=== PATIENT | male | born 1970 | race Caucasian/White ===

== ENCOUNTER 2016-04-26 08:28 | Inpatient (IN) | payer BC ==
[2016-04-26 09:50] LABS: Hematocrit 46 % (42-52); Hemoglobin 15.7 g/dl (14.0-18.0); Mean Corpuscular HGB Conc 34 g/dl (31-36); Mean Corpuscular Hemoglobin 32 pg (27-31); Mean Corpuscular Volume 94 fL (80-94); Mean Platelet Volume 8 um3 (7.4-10.4); Red Blood Count 4.86 10^6/ul (4.0-5.4); Red Cell Distribution Width 13 % (10.5-15); White Blood Count 6.3 10^3/ul (3.5-10.8)
[2016-04-26 09:53] LABS: Urine Bacteria Absent (Absent); Urine Bilirubin Negative (Negative); Urine Glucose Negative (Negative); Urine Nitrite Negative (Negative)
[2016-04-26 10:02] LABS: ALT 20 U/L (7-52); AST 19 U/L (13-39); Albumin 4.8 g/dL (3.2-5.2); Alkaline Phosphatase 76 U/L (34-104); Anion Gap 8 mmol/L (2-11); BUN/Creatinine Ratio 21.5 (8-20); Blood Urea Nitrogen 20 mg/dL (6-24); CO2 Carbon Dioxide 22 mmol/L (22-32); Chloride 106 mmol/L (101-111); EGFR Non-African American 87.9 (>60); Globulin 2.7 g/dL (2-4); Glucose 103 mg/dL (70-100); Potassium 4.1 mmol/L (3.5-5.0); Sodium 136 mmol/L (133-145); Total Protein 7.5 g/dL (6.4-8.9)
[2016-04-26 10:11] LABS: Benzodiazepine Urine Screen None Detected (None Detect)
[2016-04-26 10:21] LABS: Acetaminophen < 15 mcg/mL; Alcohol < 10 mg/dL (<10); Salicylate < 2.50 mg/dL (<30)
[2016-04-26 10:30] LABS: TSH (Thyroid Stimulating Horm) 1.02 mcIU/mL (0.34-5.60)
[2016-04-26] MEDS ORDERED: lamoTRIgine TAB(*) 100 MG PO ONE (14:37)
[2016-04-26] MEDS ORDERED: Nicotine Inhaler* 10 MG AMP INH PRN (14:40)
[2016-04-26] MEDS ORDERED: Al Hydrox/Mg Hydrox/Simet LIQ* 30 ML UDC PO PRN (14:40)
[2016-04-26] MEDS ORDERED: lamoTRIgine TAB(*) 100 MG ONE (14:45)
--- NOTE | 2016-04-26 14:54 | ED ---
Tracy Adamson Alok, scribed for Larry Gustafson MD on 04/26/16 at 0930 . Psychiatric Complaint - HPI Summary HPI Summary: 46 y/o male with PMHx of bipolarity presents to the ED with anxiety and stress. Pt states that he has been stressed at work this week due to his boss. His symptoms include tremors, body aches, head pressure, and chest pressure. Pt adds inability to lay down or sleep. Pt is positive for tobacco, EtOH, and marijuana usage. Pt medications for his bipolar disorder include Lamictal and Seroquel. - History Of Current Complaint Chief Complaint: EDMentalHealth Time Seen by Provider: 04/26/16 08:37 Hx Obtained From: Patient Onset/Duration: Gradual Onset Timing: Constant Severity Initially: Moderate Severity Currently: Moderate Character: Anxious Aggravating Factor(s): Nothing Alleviating Factor(s): Nothing Associated Signs And Symptoms: Positive: Sleep Disturbance Has Suicidal: Denies: Thoughts Has Homicidal: Denies: Thoughts - Allergies/Home Medications Allergies/Adverse Reactions: Allergies Allergy/AdvReac Type Severity Reaction Status Date / Time No Known Allergies Allergy Verified 06/01/15 16:02 Home Medications: Home Medications QUEtiapine TAB* [SEROquel TAB*] 100 mg PO QPM 04/26/16 [History Confirmed ] QUEtiapine TAB* [SEROquel TAB*] 300 mg PO QPM 04/26/16 [History Confirmed ] lamoTRIgine TAB(*) [LaMICtal TAB(*)] 100 mg PO BID 04/26/16 [History Confirmed 04/26/16] PMH/Surg Hx/FS Hx/Imm Hx GI History: Reports: Hx Ulcer Psychiatric History: Reports: Hx Depression, Hx Bipolar Disorder Denies: Hx Eating Disorder - some restricting, Hx of Violent Episodes Against Others - Surgical History Surgery Procedure, Year, and Place: wisdom teeth Infectious Disease History: No Infectious Disease History: Denies: Hx Clostridium Difficile, Hx Hepatitis, Hx Human Immunodeficiency Virus (HIV), Hx of Known/Suspected MRSA, Hx Shingles, Hx Tuberculosis, Traveled Outside the [place] in Last 30 Days - Family History Known Family History: Positive: Cardiac Disease - Social History Occupation: Employed Full-time Alcohol Use: Rare Substance Use Type: Reports: None Hx Tobacco Use: Yes Smoking Status (MU): Light Every Day Tobacco Smoker Type: Cigarettes Amount Used/How Often: 1/ ppd Review of Systems Negative: Fever Positive: Chest Pain Positive: Headache Positive: Anxious All Other Systems Reviewed And Are Negative: Yes Physical Exam Triage Information Reviewed: Yes Vital Signs On Initial Exam: Initial Vitals Temp Pulse Resp BP Pulse Ox 98.7 F 73 18 131/79 98 04/26/16 08:28 04/26/16 08:28 04/26/16 08:28 04/26/16 08:28 04/26/16 08:28 Vital Signs Reviewed: Yes Appearance: Positive: Well-Appearing, No Pain Distress, Well-Nourished Skin: Positive: Warm, Skin Color Reflects Adequate Perfusion, Dry Head/Face: Positive: Normal Head/Face Inspection Eyes: Positive: Normal, EOMI, OBED ENT: Positive: Normal ENT inspection, Hearing grossly normal Neck: Positive: Supple, Nontender Respiratory/Lung Sounds: Positive: Clear to Auscultation, Breath Sounds Present Cardiovascular: Positive: Normal, RRR Abdomen Description: Positive: Nontender, Soft Bowel Sounds: Positive: Present Musculoskeletal: Positive: Normal, Strength/ROM Intact Neurological: Positive: Normal, Sensory/Motor Intact, Alert, Oriented to Person Place, Time Psychiatric: Positive: Normal, Anxious - No SI/HI - [place] Coma Scale Coma Scale Total: 15 Diagnostics - Vital Signs Vital Signs Temp Pulse Resp BP Pulse Ox 04/26/16 08:28 98.7 F 73 18 131/79 98 - Laboratory Lab Results: Lab Results 04/26/16 04/26/16 04/26/16 Range/Units 09:33 09:33 09:33 WBC 6.3 (3.5-10.8) 10^3/ul RBC 4.86 (4.0-5.4) 10^6/ul Hgb 15.7 (14.0-18.0) g/dl Hct 46 (42-52) % MCV 94 (80-94) fL MCH 32 H (27-31) pg MCHC 34 (31-36) g/dl RDW 13 (10.5-15) % Plt Count 271 (150-450) 10^3/ul MPV 8 (7.4-10.4) um3 Neut % (Auto) 57.6 (38-83) % Lymph % (Auto) 30.4 (25-47) % [place] % (Auto) 7.7 (1-9) % Eos % (Auto) 3.6 (0-6) % Baso % (Auto) 0.7 (0-2) % Absolute Neuts (auto) 3.6 (1.5-7.7) 10^3/ul Absolute Lymphs (auto) 1.9 (1.0-4.8) 10^3/ul Absolute Monos (auto) 0.5 (0-0.8) 10^3/ul Absolute Eos (auto) 0.2 (0-0.6) 10^3/ul Absolute Basos (auto) 0 (0-0.2) 10^3/ul Absolute Nucleated RBC 0 10^3/ul Nucleated RBC % 0.1 Sodium 136 (133-145) mmol/L Potassium 4.1 (3.5-5.0) mmol/L Chloride 106 (101-111) mmol/L Carbon Dioxide 22 (22-32) mmol/L Anion Gap 8 (2-11) mmol/L BUN 20 (6-24) mg/dL Creatinine 0.93 (0.67-1.17) mg/dL Est GFR ( Amer) 113.0 (>60) Est GFR (Non-Af Amer) 87.9 (>60) BUN/Creatinine Ratio 21.5 H (8-20) Glucose 103 H (70-100) mg/dL Calcium 10.0 (8.6-10.3) mg/dL Total Bilirubin 0.70 (0.2-1.0) mg/dL AST 19 (13-39) U/L ALT 20 (7-52) U/L Alkaline Phosphatase 76 (34-104) U/L Troponin I 0.00 (<0.04) ng/mL Total Protein 7.5 (6.4-8.9) g/dL Albumin 4.8 (3.2-5.2) g/dL Globulin 2.7 (2-4) g/dL Albumin/Globulin Ratio 1.8 (1-3) TSH 1.02 (0.34-5.60) mcIU/mL Urine Color Yellow Urine Appearance Clear Urine pH 6.0 (5-9) Ur Specific [place] 1.019 (1.010-1.030) Urine Protein Negative (Negative) Urine Ketones Negative (Negative) Urine Blood 1+ H (Negative) Urine Nitrate Negative (Negative) Urine Bilirubin Negative (Negative) Urine Urobilinogen Negative (Negative) Ur Leukocyte Esterase Negative (Negative) Urine WBC (Auto) Absent (Absent) Urine RBC (Auto) 1+(3-5/hpf) H (Absent) Urine Bacteria Absent (Absent) Urine Glucose Negative (Negative) Salicylates < 2.50 (<30) mg/dL Urine Opiates Screen (None Detect) Acetaminophen < 15 mcg/mL Ur Barbiturates Screen (None Detect) Ur Phencyclidine Scrn (None Detect) Ur Amphetamines Screen (None Detect) U Benzodiazepines Scrn (None Detect) Urine Cocaine Screen (None Detect) U Cannabinoids Screen (None Detect) Serum Alcohol < 10 (<10) mg/dL 04/26/16 Range/Units 09:33 WBC (3.5-10.8) 10^3/ul RBC (4.0-5.4) 10^6/ul Hgb (14.0-18.0) g/dl Hct (42-52) % MCV (80-94) fL MCH (27-31) pg MCHC (31-36) g/dl RDW (10.5-15) % Plt Count (150-450) 10^3/ul MPV (7.4-10.4) um3 Neut % (Auto) (38-83) % Lymph % (Auto) (25-47) % [place] % (Auto) (1-9) % Eos % (Auto) (0-6) % Baso % (Auto) (0-2) % Absolute Neuts (auto) (1.5-7.7) 10^3/ul Absolute Lymphs (auto) (1.0-4.8) 10^3/ul Absolute Monos (auto) (0-0.8) 10^3/ul Absolute Eos (auto) (0-0.6) 10^3/ul Absolute Basos (auto) (0-0.2) 10^3/ul Absolute Nucleated RBC 10^3/ul Nucleated RBC % Sodium (133-145) mmol/L Potassium (3.5-5.0) mmol/L Chloride (101-111) mmol/L Carbon Dioxide (22-32) mmol/L Anion Gap (2-11) mmol/L BUN (6-24) mg/dL Creatinine (0.67-1.17) mg/dL Est GFR ( Amer) (>60) Est GFR (Non-Af Amer) (>60) BUN/Creatinine Ratio (8-20) Glucose (70-100) mg/dL Calcium (8.6-10.3) mg/dL Total Bilirubin (0.2-1.0) mg/dL AST (13-39) U/L ALT (7-52) U/L Alkaline Phosphatase (34-104) U/L Troponin I (<0.04) ng/mL Total Protein (6.4-8.9) g/dL Albumin (3.2-5.2) g/dL Globulin (2-4) g/dL Albumin/Globulin Ratio (1-3) TSH (0.34-5.60) mcIU/mL Urine Color Urine Appearance Urine pH (5-9) Ur Specific [place] (1.010-1.030) Urine Protein (Negative) Urine Ketones (Negative) Urine Blood (Negative) Urine Nitrate (Negative) Urine Bilirubin (Negative) Urine Urobilinogen (Negative) Ur Leukocyte Esterase (Negative) Urine WBC (Auto) (Absent) Urine RBC (Auto) (Absent) Urine Bacteria (Absent) Urine Glucose (Negative) Salicylates (<30) mg/dL Urine Opiates Screen None detected (None Detect) Acetaminophen mcg/mL Ur Barbiturates Screen None detected (None Detect) Ur Phencyclidine Scrn None detected (None Detect) Ur Amphetamines Screen None detected (None Detect) U Benzodiazepines Scrn None detected (None Detect) Urine Cocaine Screen None detected (None Detect) U Cannabinoids Screen Presumptive positive H (None Detect) Serum Alcohol (<10) mg/dL Result Diagrams: 04/26/16 09:33 04/26/16 09:33 Lab Statement: Any lab studies that have been ordered have been reviewed, and results considered in the medical decision making process. - EKG 0905 Cardiac Rate: NL EKG Rhythm: Sinus Rhythm - [address] Segment: Normal Course/Dx - Course Course Of Treatment: 46 y/o male with PMHx of bipolarity presents to the ED with anxiety and stress. Pt states that he has been stressed at work this week due to his boss. His symptoms include tremors, body aches, head pressure, and chest pressure. Pt adds inability to lay down or sleep. Pt is positive for tobacco, EtOH, and marijuana usage. Pt medications for his bipolar disorder include Lamictal and Seroquel. Assessment/Plan: Blood work within normal limits with glucose 103 H, Trop 0.00. urinology is negative. Toxicology came back positive for marijuana. Due to EKG NSR pt is medically cleared waiting for mental evaluation. Pt is currently alert and oriented x3 and hemodynamically stable. Dr. King (Psych) evaluated patient and he will admitting patient to his services for further w/u and management. Patient is hemodynamically stable and A+O x 3. - Differential Dx/Clinical Impression Differential Diagnosis/HQI/PQRI: Positive: Depression, Suicidal Ideation Provider Diagnosis: Acute depression Discharge - Discharge Plan Condition: Stable Disposition: [facility] Referrals: Evan Mcleod MD [Primary Care Provider] - The documentation as recorded by the Tracy aviles Alok accurately reflects the service I personally performed and the decisions made by Sj curry Walter, MD.
--- NOTE | 2016-04-26 16:01 | PN ---
Progress Note - Progress Note Note: Spoke with his prescriber Bruno who reports that he takes 175 mg bid lamictal , up from 150 mg bid by recent dose increase. Confirmed that total daily dose had gone from 300 to 350 mg.
[2016-04-26] MEDS ORDERED: QUEtiapine TAB* 300 MG PO SCH (18:00)
[2016-04-26] MEDS ORDERED: QUEtiapine TAB* 100 MG PO SCH (18:00)
[2016-04-26] MEDS: lamoTRIgine TAB(*) 100 MG PO SCH (20:21)
[2016-04-26] MEDS: Acetaminophen TAB* 325 MG PO PRN (20:25)
[2016-04-26] MEDS ORDERED: lamoTRIgine TAB(*) 100 MG PO SCH (21:00)
[2016-04-27] MEDS: Vitamin THERAPEUTIC TAB PO SCH (07:56)
[2016-04-27] MEDS: Omeprazole CAP* 20 MG PO SCH (07:56)
[2016-04-27] MEDS: lamoTRIgine TAB(*) 100 MG PO SCH ×2 (07:57→20:19)
--- NOTE | 2016-04-27 11:59 | PN ---
MHU: Group Therapy Note - Service Type Service Type: [id number] Group Psychotherapy - Cognitive Behavioral Group Therapy ( CBT):Patient was attentive and participatory in CBT programming this morning, and remained in good behavioral control. Patient expressed positive insights regarding relevant treatment interventions and goals.
[2016-04-27] MEDS: QUEtiapine TAB* 100 MG PO SCH (20:19)
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
[2016-04-28] MEDS: Omeprazole CAP* 20 MG PO SCH (06:09)
[2016-04-28] MEDS: Vitamin THERAPEUTIC TAB PO SCH (08:21)
[2016-04-28] MEDS: lamoTRIgine TAB(*) 100 MG PO SCH ×2 (08:22→20:43)
[2016-04-28] MEDS: Acetaminophen TAB* 325 MG PO PRN (18:05)
[2016-04-28] MEDS: QUEtiapine TAB* 100 MG PO SCH (20:44)
[2016-04-29] MEDS: Omeprazole CAP* 20 MG PO SCH (07:23)
[2016-04-29] MEDS: lamoTRIgine TAB(*) 100 MG PO SCH ×2 (08:31→20:18)
[2016-04-29] MEDS: Vitamin THERAPEUTIC TAB PO SCH (08:32)
[2016-04-29] MEDS: QUEtiapine TAB* 100 MG PO SCH (20:18)
--- NOTE | 2016-04-29 20:53 | PN ---
Subjective - Subjective Service Type: [id number] Hosp care 15 min low complexity Subjective: Patient says he has been feeling a lot better. Pressure in the head is lot less so is his anxiety. DEnies any psychiatric problem. Objective - Appearance Appearance: Healthy Appearing Dysmorphic Features: No Hygiene: Normal Grooming: Well Kept - Behavior Psychomotor Activities: Normal Exhibits Abnormal Movement: Yes - Attitude and Relatedness Attitude and Relatedness: Appropriate Eye Contact: Good - Speech Quality: Unpressured Latencies: Normal - Mood Patient's Decription of Mood: "Great" - Affect Observed Affect: Non-labile Affect Consistent with: Euthymia - Thought Process Patient's Thought Process: Coherent, Goal Directed Thought Content: No Passive Wish, No Suicidal Planning, No Homicidal Ideation, No Paranoid Ideation - Sensorium Experiencing Hallucinations: No, Sensorium is Clear Type of Hallucinations: Visual: No, Auditory: No, Command: No - Level of Consciousness Level of Consciousness: Alert Orientation: Yes Intact, Yes Orientated to Time, Yes Orientated to Place, Yes Orientated to Person - Impulse Control Impulse Control: Intact - Insight and Judgement Insight and Judgement: Fair - Group Participation Particating in Group Activities: Yes - Medication Management Medication Management Adherence: Yes Assessment - Assessment Merits Inpatient Hospitalization: Consolidate Improvements, Pending Safe DC Plan Plan - Plan Treatment Plan: Name: STELLA SMITH Birthdate: 1970 [id number] Continued Medication Management: Continue Outpt Medication Medications: Current Medications Acetaminophen (Tylenol Tab*) 650 mg PO Q4H PRN PRN Reason: for pain; or Temp >101 F Last Admin: 04/28/16 18:05 Dose: 650 mg Al Hydrox/Mg Hydrox/Simethicone (Maalox Plus*) 30 ml PO Q4H PRN PRN Reason: INDIGESTION Lamotrigine (Lamictal Tab(*)) 150 mg PO BID [facility] Last Admin: 04/29/16 20:18 Dose: 150 mg Multivitamins (Theragran Tab*) 1 tab PO DAILY [facility] Last Admin: 04/29/16 08:32 Dose: 1 tab Nicotine (Nicotine Inhaler*) 10 mg INH Q2H PRN PRN Reason: CRAVING Omeprazole (Prilosec Cap*) 40 mg PO DAILY@0600 [facility] Last Admin: 04/29/16 07:23 Dose: 40 mg Quetiapine Fumarate (Seroquel Tab*) 500 mg PO BEDTIME [facility] Last Admin: 04/29/16 20:18 Dose: 500 mg - Discharge Plan Discharge Plan: Outpatient Follow Up Outpatient Program: [facility]
[2016-04-29] MEDS: Acetaminophen TAB* 325 MG PO PRN (22:39)
[2016-04-30] MEDS: Omeprazole CAP* 20 MG PO SCH (06:53)
[2016-04-30 07:58] VITALS: BP 114/83
[2016-04-30] MEDS: Vitamin THERAPEUTIC TAB PO SCH (08:14)
[2016-04-30] MEDS: lamoTRIgine TAB(*) 100 MG PO SCH (08:14)
--- NOTE | 2016-04-30 13:38 | PN ---
MHU: Group Therapy Note - Service Type Service Type: [id number] Group Psychotherapy - Cognitive Behavioral Group Therapy ( CBT):Patient was attentive and participatory in CBT programming this morning, and remained in good behavioral control. Patient expressed positive insights regarding relevant treatment interventions and goals.
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
== END 2016-04-30 14:00 | disposition home or self-care (01) | DRG 753 ==
LOC: ED 08:28 → BSU 14:40
PROVIDERS: ADMIT Psychiatry & Neurology Psychiatry; ATTEND Psychiatry & Neurology Psychiatry
PROC: GZHZZZZ Group Psychotherapy (ICD-10-PCS; principal; 2016-04-27)
PROC: GZ58ZZZ Individual Psychotherapy, Cognitive-Behavioral (ICD-10-PCS; 2016-04-27)
DX: F31.5 Bipolar disorder, current episode depressed, severe, with psychotic features (principal); F41.9 Anxiety disorder, unspecified; K21.9 Gastro-esophageal reflux disease without esophagitis; K58.9 Irritable bowel syndrome, unspecified; Z56.9 Unspecified problems related to employment; F17.210 Nicotine dependence, cigarettes, uncomplicated; Z82.49 Family history of ischemic heart disease and other diseases of the circulatory system
CPT/HCPCS: 36415; 80053; 80175; 80307; 80320; 80329; 81003; 81015; 84443; 84484; 85025; 90853; 93005; 99222; 99231; 99238; A9270-GY; G0480

== ENCOUNTER 2017-07-20 10:53 | Emergency (ER) | payer BC, OTHER ==
[2017-07-20] MEDS ORDERED: Pantoprazole IV* 40 MG IV ONE (11:48)
[2017-07-20] MEDS ORDERED: Sucralfate TAB* 1 GM PO ONE (11:48)
[2017-07-20 12:18] LABS: ABS Basophils 0 10^3/ul (0-0.2); ABS Eosinophils 0.2 10^3/ul (0-0.6); ABS Lymphocytes 1.9 10^3/ul (1.0-4.8); ABS Monocytes 0.6 10^3/ul (0-0.8); ABS Neutrophils 3.6 10^3/ul (1.5-7.7); ABS Nucleated RBC 0 10^3/ul; Eosinophil % 3.9 % (0-6); Hematocrit 47 % (42-52); Hemoglobin 16.3 g/dl (14.0-18.0); Lymphocyte % 29.6 % (25-47); Mean Corpuscular HGB Conc 35 g/dl (31-36); Mean Corpuscular Hemoglobin 33 pg (27-31); Mean Corpuscular Volume 94 fL (80-94); Mean Platelet Volume 7.7 um3 (7.4-10.4); Nucleated Red Blood Cells % 0; Platelet Count 294 10^3/ul (150-450); Red Blood Count 5.02 10^6/ul (4.0-5.4); Red Cell Distribution Width 13 % (10.5-15); White Blood Count 6.4 10^3/ul (3.5-10.8)
--- NOTE | 2017-07-20 12:35 | RAD ---
INDICATION: Chest pain. History of tobacco use. COMPARISON: June 01, 2015 TECHNIQUE: Dual energy PA and routine lateral views of the chest were obtained. REPORT: Mildly elevated lung volumes. No focal pulmonary lesion, compelling alveolar consolidation, pleural effusion, pneumothorax. The heart, pulmonary vasculature, and mediastinal contours are unremarkable. Unremarkable soft tissue contours and osseous structures. IMPRESSION: Stigmata of potential obstructive lung disease. No acute cardiopulmonary process evident.
[2017-07-20 12:37] LABS: EGFR Non-African American 67.1 (>60)
[2017-07-20] MEDS ORDERED: Ketorolac INJ* 30 MG/ML 1 ML VIAL IV PUSH ONE (15:19)
[2017-07-20 15:33] VITALS: BP 127/88
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
== END 2017-07-20 15:39 | disposition home or self-care (01) ==
LOC: ED 10:53
DX: R07.9 Chest pain, unspecified (principal); I49.1 Atrial premature depolarization; F17.210 Nicotine dependence, cigarettes, uncomplicated; Z79.899 Other long term (current) drug therapy
CPT/HCPCS: 36415; 71046; 80053; 82550; 83605; 84484; 85025; 85379; 86140; 93005; 96374; 99283; A9270-GY; J1885

== ENCOUNTER 2018-07-16 13:12 | Emergency (ER) | payer SELFPAY ==
--- NOTE | 2018-07-16 14:01 | ED ---
Abdominal Pain/Male - HPI Summary HPI Summary: Pt is a 48 y/o M presenting to the ED with a chief complaint of abdominal pain onset this morning at 0500. The pt states that it radiates across his chest and into his back, with associated nausea and vomiting. The pts states he has bipolar disorder and this pain tends to happen when he changes medication, so he has been experiencing this pain intermittently for about 5 weeks but today it was worsened and not going away. They went to a naturopathic doctor who gave him tx that eventually made him vomit while in triage. After vomiting, his pain went from a 9/10 to a 3/10. He denies hematemesis. 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 - History of Current Complaint Chief Complaint: EDAbdPain Stated Complaint: ABD PAIN/NAUSEA PER PT Time Seen by Provider: 07/16/18 13:42 Hx Obtained From: Patient Onset/Duration: Sudden Onset, Lasting Hours, Resolved Timing: Constant, Lasting Hours Severity Initially: Severe Severity Currently: Mild Pain Intensity: 3 Pain Scale Used: 0-10 Numeric Location: Epigastric Radiates: Yes Radiates to: Back, Chest Aggravating Factor(s): Nothing Alleviating Factor(s): Vomiting Associated Signs And Symptoms: Positive: Chest Pain, Back Pain, Nausea, Vomiting - Allergies/Home Medications Allergies/Adverse Reactions: Allergies Allergy/AdvReac Type Severity Reaction Status Date / Time No Known Allergies Allergy Verified 07/16/18 13:18 Home Medications: Home Medications Ziprasidone HCl [Geodon] 40 mg PO DAILY 07/16/18 [History Confirmed 07/16/18] buPROPion HCl [Bupropion HCl Sr] 100 mg PO DAILY 07/16/18 [History Confirmed ] PMH/Surg Hx/FS Hx/Imm Hx Previously Healthy: Yes Endocrine/Hematology History: Denies: Hx Diabetes Cardiovascular History: Denies: Hx Cardiomegaly, Hx Congestive Heart Failure, Hx Hypercholesterolemia , Hx Hypertension Respiratory History: Denies: Hx Chronic Obstructive Pulmonary Disease (COPD) GI History: Reports: Hx Ulcer Denies: Hx Gall Bladder Disease Neurological History: Reports: Hx Headaches Psychiatric History: Reports: Hx Depression, Hx Community Mental Health Tx, Hx Bipolar Disorder Denies: Hx Eating Disorder - some restricting, Hx of Violent Episodes Against Others - Surgical History [facility] Infectious Disease History: No Infectious Disease History: Denies: Hx Clostridium Difficile, Hx Hepatitis, Hx Human Immunodeficiency Virus (HIV), Hx of Known/Suspected MRSA, Hx Shingles, Hx Tuberculosis, Traveled Outside the [place] in Last 30 Days - Family History Known Family History: Positive: Cardiac Disease, Other - colon cancer - Social History Alcohol Use: Rare Hx Substance Use: Yes Substance Use Type: Reports: Marijuana Hx Tobacco Use: Yes Smoking Status (MU): Light Every Day Tobacco Smoker Type: Cigarettes Amount Used/How Often: 1/ ppd Review of Systems Positive: Chest Pain Positive: Abdominal Pain, Vomiting, Nausea. Negative: Other - hematemesis Positive: Myalgia - back pain All Other Systems Reviewed And Are Negative: Yes Physical Exam - Summary Physical Exam Summary: Appearance: Well appearing, no pain distress Skin: warm, dry, reflects adequate perfusion Head/face: normal Eyes: EOMI, OBED ENT: normal Neck: supple, non-tender Respiratory: CTA, breath sounds present Cardiovascular: RRR, pulses symmetrical Abdomen: soft, mild tenderness in epigastric region and RUQ Musculoskeletal: normal, strength/ROM intact Neuro: normal, sensory motor intact, A&Ox3 Triage Information Reviewed: Yes Vital Signs On Initial Exam: Initial Vitals Temp Pulse Resp BP Pulse Ox 97.3 F 74 16 148/91 99 07/16/18 13:13 07/16/18 13:13 07/16/18 13:13 07/16/18 13:13 07/16/18 13:13 Vital Signs Reviewed: Yes Diagnostics - Vital Signs Vital Signs Temp Pulse Resp BP Pulse Ox 07/16/18 13:13 97.3 F 74 16 148/91 99 - Laboratory Result Diagrams: 07/16/18 14:25 07/16/18 14:25 Lab Statement: Any lab studies that have been ordered have been reviewed, and results considered in the medical decision making process. - Radiology CXR Radiology Interpretation Completed By: Radiologist Summary of Radiographic Findings: No active cardiopulmonary disease. ED physician has reviewed this report. - Ultrasound No standard instances Ultrasound Interpretation Completed By: Radiologist Summary of Ultrasound Findings: Gallbladder US: Hepatomegaly. No evidence of cholelithiasis or biliary duct dilatation. ED physician has reviewed this report. Abdominal Pain Male Course/Dx - Course Course Of Treatment: Pt is a 48 y/o M presenting to the ED with a chief complaint of abdominal pain onset this morning at 0500. The pt states that it radiates across his chest and into his back, with associated nausea. He went to a naturopathic doctor and the tx they gave him made him vomit, but after vomiting he notes his pain went from a 9/10 to 3/10. He denies hematemesis. On exam, the pt has mild tenderness in the epigastric region and RUQ. I recommended the pt get a CT scan done to r/o an aortic dissection, but the pt and his refused d/t lack of insurance. US of the cholecyst will be the first course of action. Gallbladder US shows: Hepatomegaly. No evidence of cholelithiasis or biliary duct dilatation. CXR shows no active cardiopulmonary disease. I discussed the results with the patient and recommended further workup, but the pt and his refused d/t insurance issues. I will be d/c' ing the pt with a dx of abd pain, and instructions to take two doses of his Omeprazole for the next 7 days. I advised strict return precautions with any new or worsening symptoms. - Diagnoses Differential Diagnosis/HQI/PQRI: Abdominal Aortic Aneurysm, ACS, Diverticulitis , Gall Bladder Disease, Pancreatitis, Renal Colic Provider Diagnoses: Abdominal pain Discharge - Sign-Out/Discharge Documenting (check all that apply): Patient Departure Patient Received Moderate/Deep Sedation with Procedure: No - Discharge Plan Condition: Stable Disposition: HOME Patient Education Materials: Acute Abdominal Pain (ED) Referrals: Hal Flores DO [Primary Care Provider] - Additional Instructions: Please take a double dose of your Omeprazole for the next 7 days. Follow up with your primary care provider within the next 2-3 days. Return to the emergency department immediately for any new or worsening symptoms. - Billing Disposition and Condition Condition: STABLE Disposition: Home - Attestation Statements Document Initiated by Annibarnav: Yes Documenting Scribe: Daja Morgan Provider For Whom Renita is Documenting (Include Credential): Forest Miller MD. Scribe Attestation: Daja Adamson scribed for Forest Miller MD. on 07/16/18 at 1608. Scribe Documentation Reviewed: Yes Provider Attestation: The documentation as recorded by the Daja aviles'Colt accurately reflects the service I personally performed and the decisions made by me, Forest Miller MD. Status of Scribe Document: Viewed
[2018-07-16 14:47] LABS: ABS Lymphocytes 0.9 10^3/ul (1.0-4.8); ABS Monocytes 0.4 10^3/ul (0-0.8); ABS Neutrophils 8.3 10^3/ul (1.5-7.7); Eosinophil % 0.1 %; Hematocrit 45 % (42-52); Hemoglobin 15.3 g/dL (14.0-18.0); Lymphocyte % 8.8 %; Mean Corpuscular HGB Conc 34 g/dL (31-36); Mean Corpuscular Hemoglobin 32 pg (27-31); Mean Corpuscular Volume 95 fL (80-94); Platelet Count 302 10^3/uL (150-450); Red Blood Count 4.75 10^6 /uL (4.18-5.48); Red Cell Distribution Width 13 % (10.5-15); White Blood Count 9.7 10^3/uL (3.5-10.8)
[2018-07-16 14:53] LABS: Urine Appearance Turbid; Urine Bacteria Absent (Absent); Urine Bilirubin Negative (Negative); Urine Blood Negative (Negative); Urine Color Yellow; Urine Glucose Negative (Negative); Urine Ketones 2+ (Negative); Urine Nitrite Negative (Negative); Urine Protein 2+(100 mg/dL) (Negative); Urine Red Blood Cell 1+(3-5/hpf) (Absent); Urine Specific Gravity 1.028 (1.010-1.030); Urine Urobilinogen Negative (Negative); Urine White Blood Cell Trace(0-5/hpf) (Absent)
[2018-07-16 14:56] LABS: Activated Partial Thrombo Time 34.4 seconds (26.0-38.0); INR 1.03 (0.82-1.09)
[2018-07-16 15:02] LABS: Albumin 4.6 g/dL (3.2-5.2); Albumin/Globulin Ratio 1.6 (1-3); BUN/Creatinine Ratio 27.7 (8-20); C Reactive Protein 1.7 mg/L (<8.01); Calcium 9.8 mg/dL (8.6-10.3); EGFR African American 120.2 (>60); EGFR Non-African American 99.3 (>60); Globulin 2.9 g/dL (2-4); Potassium 3.7 mmol/L (3.5-5.0); Total Bilirubin 0.6 mg/dL (0.2-1.0); Total Protein 7.5 g/dL (6.4-8.9)
[2018-07-16 16:04] VITALS: BP 119/76
== END 2018-07-16 16:04 | disposition home or self-care (01) ==
LOC: ED 13:12
DX: R10.9 Unspecified abdominal pain (principal); R16.0 Hepatomegaly, not elsewhere classified; R94.31 Abnormal electrocardiogram [ECG] [EKG]; F31.9 Bipolar disorder, unspecified; F17.210 Nicotine dependence, cigarettes, uncomplicated
CPT/HCPCS: 36415; 71045; 76705; 80053; 81003; 81015; 83605; 83690; 84484; 85025; 85610; 85730; 86140; 87086; 93005; 99283

== ENCOUNTER 2021-02-04 20:02 | Observation (INO) ==
[2021-02-04] MEDS ORDERED: NS 0.9% 1000 ml BAG 1,000 ML IV ONE (20:14)
[2021-02-04] MEDS ORDERED: Iodixanol (CONTRAST) 320 MG/ML 100 ML SDV IV ONE (20:45)
[2021-02-04 21:07] LABS: ABS Eosinophils 0.1 10^3/ul (0-0.6); ABS Lymphocytes 2.1 10^3/ul (1.0-4.8); ABS Monocytes 0.4 10^3/ul (0-0.8); Eosinophil % 2.8 %; Hematocrit 43 % (42-52); Hemoglobin 14.5 g/dL (14.0-18.0); Lymphocyte % 45.1 %; Mean Corpuscular HGB Conc 34 g/dL (31-36); Mean Corpuscular Hemoglobin 35 pg (27-31); Mean Corpuscular Volume 103 fL (80-94); Mean Platelet Volume 7.7 fL (7.4-10.4); Nucleated Red Blood Cells % 0.1; Platelet Count 260 10^3/uL (150-450); Red Blood Count 4.14 10^6 /uL (4.18-5.48); Red Cell Distribution Width 14 % (10-15); White Blood Count 4.6 10^3/uL (3.5-10.8)
[2021-02-04 21:17] LABS: Activated Partial Thrombo Time 28.2 seconds (26.0-38.0); INR 1.05 (0.86-1.15)
[2021-02-04 21:25] LABS: Albumin 3.8 g/dL (3.2-5.2); Albumin/Globulin Ratio 1.5 (1-3); Calcium 8.7 mg/dL (8.6-10.3); Globulin 2.5 g/dL (2-4); HDL Cholesterol 47.1 mg/dL; Total Bilirubin 0.5 mg/dL (0.2-1.0); Total Protein 6.3 g/dL (6.4-8.9); eGFR CKD-EPI 64.4 (>60)
[2021-02-04 21:29] LABS: Potassium 3.8 mmol/L (3.5-5.0)
[2021-02-05 00:39] LABS: Urine Appearance Clear; Urine Bilirubin Negative (Negative); Urine Blood Negative (Negative); Urine Color Straw; Urine Glucose Negative (Negative); Urine Ketones Negative (Negative); Urine Nitrite Negative (Negative); Urine Protein Negative (Negative); Urine Urobilinogen Negative (Negative)
[2021-02-05] MEDS ORDERED: NS 0.9% 1000 ml BAG 1,000 ML IV ONE (01:08)
[2021-02-05] MEDS: Lithium Carbonate ER 450mg TAB PO SCH ×3 (01:17→21:10)
[2021-02-05] MEDS ORDERED: Ondansetron 4 mg VIAL 2 MG/ML 2 ml VIAL IV PRN (03:27)
[2021-02-05] MEDS ORDERED: Zoledronic Acid 4 MG in NS 0.9% 100 ml BAG 100 ML IVPB ONE (03:28)
[2021-02-05 06:24] LABS: ABS Eosinophils 0.1 10^3/ul (0-0.6); ABS Lymphocytes 1.9 10^3/ul (1.0-4.8); ABS Monocytes 0.3 10^3/ul (0-0.8); ABS Neutrophils 1.7 10^3/ul (1.5-7.7); Eosinophil % 1.9 %; Hematocrit 39 % (42-52); Hemoglobin 13.2 g/dL (14.0-18.0); Lymphocyte % 46.1 %; Mean Corpuscular HGB Conc 34 g/dL (31-36); Mean Corpuscular Hemoglobin 35 pg (27-31); Mean Corpuscular Volume 104 fL (80-94); Mean Platelet Volume 7.7 fL (7.4-10.4); Nucleated Red Blood Cells % 0.1; Platelet Count 237 10^3/uL (150-450); Red Blood Count 3.77 10^6 /uL (4.18-5.48); Red Cell Distribution Width 14 % (10-15)
[2021-02-05 06:38] LABS: Albumin 3.4 g/dL (3.2-5.2); Albumin/Globulin Ratio 1.5 (1-3); Calcium 7.8 mg/dL (8.6-10.3); Globulin 2.2 g/dL (2-4); Potassium 3.8 mmol/L (3.5-5.0); Total Bilirubin 0.6 mg/dL (0.2-1.0); Total Protein 5.6 g/dL (6.4-8.9)
[2021-02-05] MEDS: NS 0.9% 1000 ml BAG 1,000 ML IV SCH ×2 (06:43→16:50)
[2021-02-05] MEDS ORDERED: CMC:FluvoxaMINE 50 mg TAB (NF) PO SCH (09:00)
[2021-02-05 10:53] LABS: Folate 4.69 ng/mL (5.90-24.80)
[2021-02-06] MEDS: NS 0.9% 1000 ml BAG 1,000 ML IV SCH (00:11)
[2021-02-06 08:49] LABS: ABS Eosinophils 0.1 10^3/ul (0-0.6); ABS Monocytes 0.3 10^3/ul (0-0.8); ABS Neutrophils 2.5 10^3/ul (1.5-7.7); Eosinophil % 2.5 %; Hematocrit 42 % (42-52); Hemoglobin 14.2 g/dL (14.0-18.0); Lymphocyte % 25.3 %; Mean Corpuscular HGB Conc 34 g/dL (31-36); Mean Corpuscular Hemoglobin 35 pg (27-31); Mean Corpuscular Volume 104 fL (80-94); Mean Platelet Volume 7.9 fL (7.4-10.4); Nucleated Red Blood Cells % 0.1; Platelet Count 260 10^3/uL (150-450); Red Blood Count 4.01 10^6 /uL (4.18-5.48); Red Cell Distribution Width 14 % (10-15)
[2021-02-06 09:00] LABS: Calcium 9.3 mg/dL (8.6-10.3); Potassium 3.8 mmol/L (3.5-5.0); eGFR CKD-EPI 62.1 (>60)
[2021-02-06] MEDS ORDERED: CMC: FluvoxaMINE 50 mg TAB (NF) PO SCH (09:00)
[2021-02-06 09:17] LABS: Lithium 0.46 mmol/L (0.6-1.2)
[2021-02-06] MEDS: Lithium Carbonate ER 450mg TAB PO SCH (09:54)
[2021-02-06 17:18] VITALS: BP 135/93
== END 2021-02-06 16:45 | disposition home or self-care (01) ==
LOC: EDHOLD 20:02 → ED 20:02 → SUATTDRO 02-05 01:09 → MEDTELE 02-05 16:06
PROVIDERS: ADMIT Student in an Organized Health Care Education/Training Program; ATTEND Internal Medicine